=== PATIENT | female | born 1975 | race African-American/Black ===

== ENCOUNTER 2019-09-05 12:10 | Emergency (ER) | payer OTHER ==
[~2019-09-05] VITALS: Ht 157.5 cm; Wt 86.2 kg
[2019-09-05 13:11] VITALS: BP 145/60
== END 2019-09-05 13:11 | disposition home or self-care (01) ==
LOC: ER 12:10
DX: S60.042A Contusion of left ring finger without damage to nail, initial encounter (principal); X58.XXXA Exposure to other specified factors, initial encounter; Y93.89 Activity, other specified; Y92.89 Other specified places as the place of occurrence of the external cause; Y99.8 Other external cause status